=== PATIENT | female | born 1965 | race Caucasian/White ===

== ENCOUNTER 2024-05-02 01:45 | Outpatient (CLI) | payer MEDICARE, MEDICAID, SELFPAY ==
--- NOTE | 2024-05-02 | DI.NM_ITS ---
APPROVED REPORT Exam: Pharmacologic Patient Location: Out-Patient Room/Bed: Stress Nurse: Mary Lou Mireles RN Ordering Provider:MARY LOU TANG, Contact Number: [phone] BMI: 26.56 Baseline Rhythm: Sinus Rhythm Indications: Chest pain, fatigue Medical History Medical History: Anemia, chronic obstructive lung disease, depression, GERD, HLD, OCD, YANELIS, prediabet es, tobacco abuse, interstitial lung disease Cardiac Medications: Advair, albuterol, clonazepam, dexlansoprazole, famotidine, gabapentin, acetamin ophen/hydrocodone, linzess, narcan, nicotine lozenge, pantoprazole Allergies: Codeine, oxycodone, quetiapine Cardiac Risk Factors: Family hx, HTN, HLD, prediabetes, COPD, smoker Previous Cardiac Procedures: None Pretest Chest Pain Characteristics: None Exercise History: Sedentary Physical Disabilities: Back Lung Sounds: Crackles bilateral bases Heart Sounds: Regular Stress Test Details Test: Pharmacologic stress testing performed using 0.4 mg of regadenoson per 5 mL given IV over 10 s econds. Reason for pharmacologic stress test: physical limitation. Nuclear Acquisition: Rest Tc-99m/Stress Tc-99m 1 day Rest Isotope: Tc-99m Sestamibi. Dose: 10.0 Date: 05/02/2024 Injection Time: 0915 Stress Isotope: Tc-99m Sestamibi. Dose: 30.0 Date: 05/02/2024 Injection Time: 1112 HR Resting HR Supine: 61 bpm Max Heart Rate (APMHR): 160.472401 bpm Target HR (85% APMHR): 136.612596 bpm Max HR Achieved: 91 bpm % of APMHR: 56.88 Recovery HR: 80 bpm BP Resting BP Supine: 128/78 mmHg Max BP: 142/76 mmHg Recovery BP: 130/74 mmHg ECG Resting ECG: Sinus Rhythm Ectopy: None Stress ECG: Sinus Rhythm ST Change: Nondiagnostic low heart rate Arrhythmia: None Recovery ECG: Sinus Rhythm Recovery ST Change: Nondiagnostic low heart rate Recovery Arrhythmia: None Clinical Stress Symptoms: None Angina Score: None Rate Pressure Product: [id number] Stress ECG Conclusion 1. Resting electrocardiogram was normal 2. Patient underwent testing using pharmacologic stress with regadenoson 3. Peak heart rate achieved was 57% of maximal predicted for age 4. The electrocardiographic portion of the test was nondiagnostic 5. See MPI report Stress Test Summary STAGE HR BP SpO2 Symptoms NOTES Supine 61 128/78 91% 1 min post Lexiscan injection 86 142/76 89% 3 min post Lexiscan injection 87 138/76 95% 6 min post Lexiscan injection 80 130/74 90% Crackles noted on bilateral bases and O2 saturation noted to be 89%-90% at rest. Patient with known h x of chronic obstructive lung disease as well as interstial lung disease and in no apparent respirato ry distress. Ok to proceed with lacho scan text per Dr. Reyna. Patient tolerated test well and denied a ny symptoms. Patient left ambulatory to imaging in no apparent distress. MPI Conclusion Myocardial perfusion shows no evidence of ischemia or prior infarction. There is apical thinning Ejection fraction is 56% with normal wall motion Radiologist Interpretation Radiologist Interpretation by: Kuldeep Ren MD Interpretation Date/Time: 05/02/2024 15:56:14
[2024-05-02] MEDS: Regadenoson 0.4 MG/5 ML SYR IVP (11:20)
== END 2024-05-02 02:05 ==
LOC: DI 01:45
PROVIDERS: PCP Physician Assistant Medical; Visit Provider Physician Assistant Medical
DX: R07.9 Chest pain, unspecified (principal); R53.83 Other fatigue
CPT/HCPCS: 78452; 93016; 93018; 93017; J2785

== ENCOUNTER → 2024-09-07 09:46 | Outpatient (BNVA) | payer MEDICARE, MEDICAID, SELFPAY | PROVIDERS: PCP Physician Assistant Medical; Referring Provider Physician Assistant Medical; Visit Provider Physician Assistant Surgical | DX: J84.10 Pulmonary fibrosis, unspecified (principal); J96.11 Chronic respiratory failure with hypoxia; I27.20 Pulmonary hypertension, unspecified; J44.9 Chronic obstructive pulmonary disease, unspecified | CPT/HCPCS: 36415; 94618; 99205 ==

== ENCOUNTER 2024-09-07 15:34 | Outpatient (REF) | payer MEDICARE, MEDICAID, SELFPAY ==
[2024-09-07 12:01] LABS: Abs Immature Grans 0.03 10^3/uL (0.0-0.06); Absolute Basophil Count 0.03 10^3/uL (0.0-0.2); Absolute Eosinophil Count 0.05 10^3/uL (0.0-0.7); Absolute Lymphocyte Count 2.67 10^3/uL (1.2-3.4); Absolute Neutrophil Count 5.72 10^3/uL (1.2-6.7); Basophils % 0.3 %; Eosinophils % 0.5 %; HCT 38.4 % (36.0-46.0); HGB 12.3 g/dL (11.2-15.7); Immature Grans % 0.3 %; Lymphocytes % 29.3 %; MCH 28.9 pg (27.0-33.0); MCV 90 fL (80-95); MPV 9.2 fL (8.0-11.0); Monocytes % 6.6 %; Platelet Count 262 10^3/uL (130-400); RBC 4.25 10^6/uL (3.93-5.22); RDW 15.2 % (11.7-14.6); RDW-SD 49.9 fL
[2024-09-07 12:30] LABS: ALT 12 U/L (14-59); AST 21 U/L (15-37); Albumin 3.4 g/dL (3.4-5.0); Alkaline Phosphatase 90 U/L (46-116); Anion Gap 9.9 mmol/L (3-11); BUN 6 mg/dL (7-18); CO2 25.1 mmol/L (21.0-32.0); CREATININE 0.7 mg/dL (0.55-1.02); Calcium 8.9 mg/dL (8.5-10.1); Chloride 107 mmol/L (98-107); Estimated GFR 98.34 (mL/min/1.73m2); Glucose 94 mg/dL (74-106); NT-proBNP 3164 pg/mL (<300); Potassium 4.2 mmol/L (3.5-5.1); Sodium 142 mmol/L (136-145); Total Protein 6.9 g/dL (6.4-8.2)
[2024-09-07 17:40] LABS: Rheumatoid Factor <8.6 IU/mL (<12.0)
[2024-09-08 09:07] LABS: Cyclic Citrullinated Peptide <2.5 U/mL (<5.0)
[2024-09-08 13:54] LABS: ANA Interpretation Positive (Negative)
[2024-09-12 11:33] LABS: Alter tenuis/alternata IgG 4.9 mcg/mL (<12.0); Aureobasidium pullulans IgG 5.4 mcg/mL (<18.0); Micropolyspora faeni IgG <2.0 mcg/mL (<5.0); Penicillium Chrysogenum IgG 55.4 mcg/mL (<22.0); Phoma betae IgG 4.6 mcg/mL (<8.0)
== END 2024-09-07 15:35 | disposition home or self-care (01) ==
LOC: LBN 15:34
PROVIDERS: PCP Physician Assistant Medical; Visit Provider Physician Assistant Surgical
DX: J84.10 Pulmonary fibrosis, unspecified (principal); I50.810 Right heart failure, unspecified
CPT/HCPCS: 80053; 86001; 86200; 83880; 85025; 86038; 86431

== ENCOUNTER → 2024-11-27 09:02 | Outpatient (BNVA) | payer MEDICARE, MEDICAID, SELFPAY | PROVIDERS: PCP Physician Assistant Medical; Referring Provider Physician Assistant Medical; Visit Provider Physician Assistant Surgical | DX: J84.10 Pulmonary fibrosis, unspecified (principal); J96.11 Chronic respiratory failure with hypoxia; I27.20 Pulmonary hypertension, unspecified; J44.9 Chronic obstructive pulmonary disease, unspecified | CPT/HCPCS: 99214 ==

== ENCOUNTER → 2025-05-28 08:19 | Outpatient (BNVA) | payer MEDICARE, MEDICAID, SELFPAY | PROVIDERS: PCP Physician Assistant Medical; Referring Provider Physician Assistant Medical; Visit Provider Physician Assistant Surgical | DX: I27.20 Pulmonary hypertension, unspecified (principal); J84.10 Pulmonary fibrosis, unspecified; J96.11 Chronic respiratory failure with hypoxia; Z87.891 Personal history of nicotine dependence | CPT/HCPCS: 99214; G0296 ==

== ENCOUNTER 2025-06-07 00:39 | Outpatient (CLI) | payer MEDICARE, MEDICAID, SELFPAY ==
[2025-06-07] MEDS: Inhaler, Assist Device 1 EACH MC (14:21)
[2025-06-07] MEDS: Levalbuterol HFA 15 GM INH 4 PUFF IH (14:21)
--- NOTE | 2025-06-11 08:47 | W.PFT ---
Date of service: 06/07/25 Time of Service: 12:55 Pulmonary Function Test Result Indications: Pulmonary fibrosis Impression 1. Good patient effort was noted. ATS standards for spirometry were met. Difficulty with DLCO testing noted, this results should be interpreted with caution. 2. Normal spirometry. 3. Following the administration of a bronchodilator there was not a significant response 4. TLC was normal. No evidence of restrictive lung disease 5. DLCO was severely reduced at 33% predicted. Some difficulty with DLCO testing was noted, so should be interpreted with caution.
== END 2025-06-07 00:40 | disposition home or self-care (01) ==
LOC: RT 00:39
PROVIDERS: PCP Physician Assistant Medical; Visit Provider Physician Assistant Surgical
DX: J84.10 Pulmonary fibrosis, unspecified (principal); J96.11 Chronic respiratory failure with hypoxia; I27.20 Pulmonary hypertension, unspecified
CPT/HCPCS: 94060; 94726; 94729

== ENCOUNTER → 2025-06-27 09:21 | Outpatient (BNVA) | payer MEDICARE, MEDICAID, SELFPAY | PROVIDERS: PCP Physician Assistant Medical; Referring Provider Physician Assistant Medical; Visit Provider Physician Assistant Surgical | DX: J96.11 Chronic respiratory failure with hypoxia (principal); I27.20 Pulmonary hypertension, unspecified; J84.9 Interstitial pulmonary disease, unspecified; J43.9 Emphysema, unspecified; F17.210 Nicotine dependence, cigarettes, uncomplicated | CPT/HCPCS: 36415; 94618; 99214 ==

== ENCOUNTER 2025-06-27 11:30 | Outpatient (REF) | payer MEDICARE, MEDICAID, SELFPAY ==
[2025-06-28 11:22] LABS: Ro60 Ab, IgG <7.0 CU (<20.0); SS-A/Ro, IgG <2.3 CU (<20.0); SS-B (La) Ab, IgG <3.3 CU (<20.0)
[2025-07-02 10:36] LABS: Scl 70 Antibodies, IgG <0.2 U
[2025-07-19 00:10] LABS: Anti-Jo-1 Ab <20 Units (<20); Anti-Ku Ab Negative (Negative); Anti-MDA-5 Ab (CADM-140) <20 Units (<20); Anti-NXP-2 (P140) Ab <20 Units (<20); Anti-PM/Scl-100 Ab <20 Units (<20); Anti-SAE1 Ab, IgG <20 Units (<20); Anti-SS-A 52kD Ab, IgG <20 Units (<20); Anti-TIF-1gamma Ab <20 Units (<20); Anti-U2 RNP Ab Negative (Negative); Anti-U3 RNP (Fibrillarin) Negative (Negative)
== END 2025-06-27 11:31 | disposition home or self-care (01) ==
LOC: LBN 11:30
PROVIDERS: PCP Physician Assistant Medical; Visit Provider Physician Assistant Surgical
DX: J84.9 Interstitial pulmonary disease, unspecified (principal)
CPT/HCPCS: 83516; 83520; 86235; 86225

== ENCOUNTER 2025-07-18 01:03 | Outpatient (CLI) | payer MEDICARE, MEDICAID, SELFPAY ==
--- NOTE | 2025-07-18 07:58 | DI.NM_ITS ---
Exam(s) NM LUNG SCAN VENT PERF GRP EXAM: NM LUNG SCAN VENT PERF GRP CLINICAL HISTORY: worsening hypoxia I27.20 PULM HTN J84.9 PULM DISEASE J43.9 EMPHYSEMA J96.11. TECHNIQUE: Injected Dose: Ventilation: 30 mCi Tc-99m DTPA via inhalation Perfusion: 4 mCi Tc-99m MAA via IV COMPARISON: CT,NM,TMT NM MPI REST STRESS GRP from 05/02/[address] CHEST LOW DOSE CA SCREENING from 06/25/2025 CR XR CHEST 2V PA LATERAL from 07/18/2025 FINDINGS: Chest X-Ray: The lungs show evidence of pulmonary fibrosis and COPD. Perfusion: There are matched defects seen on the right most suggestive of COPD. There are no ventilation perfusion mismatch is present to suggest pulmonary embolism. Ventilation:There are matched defects seen in the right lung suggestive of COPD. IMPRESSION: 1. Low probability VQ examination. 2. Matched defect seen in the right lung most suggestive of COPD. Modified PIOPED II criteria Probability Criteria High Two or more segments of V/Q mismatch Low Normal Perfusion, Non segmental perfusion abnormalities, pleural effusion in at least 1/3 of pleural cavity with no other defect Radiograph/perfusion matched defect in mid to upper lung confined to segment, one to three small segmental perfusion defects (<25% of segment) Perfusion defect smaller than corresponding radiographic lesion. Intermediate All other findings DATA REPOSITORY:
--- NOTE | 2025-07-18 12:33 | DI.US_ITS ---
APPROVED REPORT EXAM: Comprehensive 2D, Doppler, and color-flow Echocardiogram Patient Location: Out-Patient Terminal Supervisor: Hayley Godinez RDCS (AE) Indications: worsening hypoxia, Pulmonary HTN, Respiratory failure Echo Enhancing Agent Agent(s) / Amount(s) Used: Agitated Saline 30.0 cc Comments: Contrast study was performed with 3 IV injections of 10ccs of agitated normal saline, at rest, with cough and post valsalva maneuver. Negative contrast study for shunt flow. Other Information Study Quality: Adequate Conclusion Normal left ventricular wall thickness and chamber size. Ejection fraction is 55 to 60%. Diastolic septal flattening suggest right ventricular pressure overload Severely dilated right ventricle and right atrium Normal left atrial size No intracardiac shunting is identified with injection of agitated saline There are no structural valvular abnormalities Severe tricuspid regurgitation. Estimated right ventricular systolic pressure is 73 mmHg Mildly dilated ascending aorta 3.85 cm Wall motion Left Ventricle The left ventricle is normal size. The left ventricular systolic function is normal. The left ventricular ejection fraction is within the normal range. There is normal left ventricular wall thickness. Flattened septum consistent with right ventricular volume and pressure overload. There is no ventricular septal defect visualized. LVEF is 58-60%. Right Ventricle Right ventricle is severely dilated. Right ventricular systolic function is grossly normal. Atria The left atrium size is normal. Right atrium is severely dilated. The interatrial septum is intact with no evidence for an atrial septal defect. Saline bubble contrast intravenous injection does not demonstrate PFO. Aortic Valve The aortic valve is normal in structure. Aortic valve is trileaflet. There is no aortic valvular stenosis. No aortic regurgitation is present. Mitral Valve The mitral valve is normal in structure. No evidence of mitral valve stenosis. Trace mitral regurgitation. Tricuspid Valve The tricuspid valve is normal in structure. There is no tricuspid valve stenosis. Severe tricuspid regurgitation. The RVSP is 72.5 mmHg. Pulmonic Valve The pulmonary valve is normal in structure. There is no pulmonic valvular stenosis. There is no pulmonic valvular regurgitation. Great Vessels The aortic root is normal in size. The ascending aorta is mildly dilated. Aortic arch is normal in caliber. IVC is normal in size and collapses >50% with inspiration. Pericardium There is no pericardial effusion. 2D Dimensions IVSD d PLAX 1.04 cm F: 0.6-1.0 Ao Root d 3.22 cm F: 2.7 - 3.3 LVPW d PLAX 1.01 cm F: 0.6 - 1.0 Ao Asc Diam d 3.85 cm F: 2.3 - 3.1 LVID d PLAX 3.83 cm F: 3.8 - 5.2 LVDs 2.64 cm F: 2.2 - 3.5 LV EF Teichholz 59.5 % FS 31.08 % LV EDV (Teich) 63.0 mL LV ESV (Teich) 25.5 mL M-Mode TAPSE 1.57 cm (M/F) >1.7 Auto EF LV EDV A4C 52.0 mL LV EDV A2C 91.7 mL LV EDV BP 69.6 mL LV ESV A4C 23.1 mL LV ESV A2C 39.2 mL LV ESV BP 29.5 mL LVEF(%) A4C 55.5 % LVEF(%) A2C 57.2 % LVEF(%) BP 57.6 % LV SV A4C 28.9 ml LV SV A2C 52.4 ml LV SV BP 40.1 ml LV CO A4C 2.6 L/min LV CO A2C 3.8 L/min LV CO BP 3.2 L/min HR A4C 90.91 BPM HR A2C 72.88 BPM LV EDV Index (BP) RV Strain Global Peak Long. Strain A4C 10.28 Global Peak Long. Strain A4C FW 9.68 LA Volume LA Length A4C 4.4 cm LA Length A2C 4.7 cm LA Area A4C s 13.24 cm2 LA Area A2C s 14.75 cm2 LA Vol A4C A-L 33.70 mL LA Vol A2C A-L 39.16 mL LA Vol Biplane A-L 37.6 mL LA Vol/BSA A4C A-L LA Vol/BSA A2C A-L LA Vol/BSA BP A-L 31.3 mL/m2 LA Vol A4C MOD 31.3 mL LA Vol A2C MOD 36.6 mL LA Vol BP MOD 34.7 mL RA Volume RA Area A4C 25.4 cm2 RA ESV A4C (A-L) 85.7mL RA Vol/BSA A4C A-L RA Length A4C 6.4 cm RA ESV A4C (MOD) 80.9mL LV Diastology MV E' medial 0.050 (>0.07 m/s) MV E Vmax 0.46 (0.4-1.3 m/s) MV E/E' MED 9.11 (<14) MV A Vmax 0.90 (0.4-1.3 m/s) MV E' lateral 0.057 (>0.1 m/s) E/A Ratio 0.5 MV E/E' LAT 7.96 (<14) MV E' Average 0.054 m/s MV E/E'(average) 8.50 Aortic Valve AoV Vmax 1.24 m/s LVOT Vmax 1.06 m/s AoV Peak Grad 6.2 mmHg LVOT Peak Grad 4.5 mmHg AoV Area (Vmax) 2.53 cm2 LVOT VTI 0.216 m AoV VTI 0.215 m LVOT Mean Grad 2.2 mmHg AoV Mean Magno. 0.87 m/s LVOT SV 64.14 mL AoV Mean Grad 3.5 mmHg LVOT Diam s 1.90 cm AoV Area (VTI) 2.99 cm2 AV Regurg Peak Gr. 6.15 mmHg Velocity Ratio 0.85 Mitral Valve MV DT 240 (160-240 msec) MV Vmax TIPS 0.95 m/s MV Mean Grad 1.5 (<2mmHg) MV VTI 0.180 m Pulmonary Valve PV Vmax 1.22 (0.5-1.5 m/s) RVOT Vmax 0.48 m/s PV Peak Grad 5.9 mmHg RVOT Peak Gr. 0.9 mmHg PV Mean Magno 0.67 m/s RVOT VTI 0.079 m PV Mean Grad 2.1 mmHg RVOT Mean Gr. 0.6 mmHg Tricuspid Valve RA Pressure 3.00 mmHg TR Vmax 4.17 m/s TV S' 0.09 m/s TR Peak Grad 69.4 mmHg RVSP (TR) 72.5 mmHg
--- NOTE | 2025-07-18 13:58 | DI.RAD_ITS ---
Exam(s) XR CHEST 2V PA LATERAL EXAM: XR CHEST 2V PA LATERAL CLINICAL HISTORY: for vent/perf scan J96.11 RESP FAILURE W/HYPOXIA TECHNIQUE: 2D digital imaging was performed of the chest. Two images were obtained. PA and lateral views were obtained. COMPARISON: CT CT CHEST LOW DOSE CA SCREENING from 06/25/2025 FINDINGS: MEDIASTINUM: Normal. HEART: Heart is at the upper limits of normal in size. PULMONARY VASCULATURE: Normal. LUNGS: There is again seen diffuse interstitial fibrosis. There are scattered areas of increased opacity particularly in the right lung base and the periphery of the left lower lobe. A superimposed process such as pneumonia or pulmonary edema cannot be excluded. PLEURAL SPACE: No pleural effusion or pneumothorax. BONE:Within normal limits for the patient's age. OTHER FINDINGS:Normal. IMPRESSION: 1. Diffuse interstitial pulmonary fibrosis. 2. Areas of increased opacity seen in the lungs particularly the right lung base in the periphery of the left lower lobe. A superimposed process such as pneumonia or pulmonary edema cannot be excluded. Please correlate clinically. DATA REPOSITORY: RADIATION DOSE DELIVERED:
== END 2025-07-18 01:23 ==
LOC: DI 01:03
PROVIDERS: PCP Physician Assistant Medical; Visit Provider Physician Assistant Surgical
DX: J96.11 Chronic respiratory failure with hypoxia (principal); J84.9 Interstitial pulmonary disease, unspecified; I27.20 Pulmonary hypertension, unspecified; J43.9 Emphysema, unspecified
CPT/HCPCS: 78582; 93306; 71046

== ENCOUNTER → 2025-08-28 09:10 | Outpatient (BNVA) | payer MEDICARE, MEDICAID, SELFPAY | PROVIDERS: PCP Physician Assistant Medical; Referring Provider Physician Assistant Medical; Visit Provider Internal Medicine Pulmonary Disease | DX: J96.11 Chronic respiratory failure with hypoxia (principal); I27.20 Pulmonary hypertension, unspecified; J84.9 Interstitial pulmonary disease, unspecified; J43.9 Emphysema, unspecified; F17.210 Nicotine dependence, cigarettes, uncomplicated | CPT/HCPCS: 99215 ==

== ENCOUNTER → 2025-09-07 00:18 | Outpatient (CLI) | payer MEDICARE, MEDICAID, SELFPAY ==
--- NOTE | 2025-09-07 07:30 | DI.CT_ITS ---
Exam(s) CT CHEST HIGH RESOLUTION EXAM: CT CHEST HIGH RESOLUTION CLINICAL HISTORY: ILD,j84.9. TECHNIQUE: Imaging protocol: Axial computed tomography images were obtained and coronal and sagittal reformatted images were created and reviewed. COMPARISON: CT CT CHEST LOW DOSE CA SCREENING from 06/25/2025 CR XR CHEST 2V PA LATERAL from 07/18/2025 FINDINGS: Tracheobronchial tree: Patent where visualized. Mild traction bronchiectasis noted in areas of greatest fibrosis. Mediastinum and Gin: No dominant adenopathy or fluid collection. Pulmonary parenchyma: No consolidation or dominant measurable mass. Interstitial thickening is again noted. The findings are greatest at the lung bases, superior segment of the right lower lobe, anterior lingula and lateral right upper lobe. In these areas there is honeycombing. The findings appear similar to the prior exam. Mild underlying and mid Pleura: No effusion or pneumothorax. Heart: The heart is moderately dilated, right atrium and right ventricle. Moderate to severe coronary artery calcifications are seen. Aorta: Ascending aorta again measures 3.9 cm [id number] atherosclerotic calcifications. Pulmonary arteries: Prominent pulmonary arteries. Pulmonary trunk measures 4 cm. Upper abdomen: Unremarkable. Lymph nodes: Within normal limits. Bones:Degenerative disc changes in the thoracic spine. No compression fractures. Tubes, Catheters, and Lines: None IMPRESSION: Stable findings of interstitial fibrosis with areas of peripheral honeycombing and mild bronchiectasis. RADIATION DOSE DELIVERED: Total DLP DATA REPOSITORY: All CT scans at this facility are submitted to the National Radiology Data Registry (NRDR) Dose Index Registry (DIR) with the [employer] ([employer]). RADIATION OPTIMIZATION: All CT scans at this facility use at least one of these dose optimization techniques: automated exposure control; mA and/or kV adjustment per patient size (includes targeted exams where dose is matched to clinical indication); or iterative reconstruction.
== END ==
PROVIDERS: PCP Physician Assistant Medical; Visit Provider Internal Medicine Pulmonary Disease
DX: J84.9 Interstitial pulmonary disease, unspecified (principal)
CPT/HCPCS: 71250